=== PATIENT | female | born 1965 | race Caucasian/White ===

== ENCOUNTER 2020-09-16 16:14 | Outpatient (CLI) | payer OTHER | END 2020-09-16 16:24 | disposition home or self-care (01) | LOC: RAD 16:14 | PROVIDERS: ATTEND Physical Medicine & Rehabilitation | DX: M75.31 Calcific tendinitis of right shoulder (principal) ==

== ENCOUNTER 2021-09-15 06:20 | Outpatient (CLI) | payer OTHER | END 2021-09-15 06:21 | disposition home or self-care (01) | LOC: LAB 06:20 | PROVIDERS: ATTEND General Practice | DX: R68.89 Other general symptoms and signs (principal); R30.0 Dysuria; E55.9 Vitamin D deficiency, unspecified; E03.9 Hypothyroidism, unspecified; R10.9 Unspecified abdominal pain ==

== ENCOUNTER 2021-09-15 07:30 | Outpatient (CLI) | payer OTHER | END 2021-09-15 07:41 | disposition home or self-care (01) | LOC: TOM 07:30 | PROVIDERS: ATTEND General Practice | DX: R51.9 Headache, unspecified (principal) ==

== ENCOUNTER 2021-11-07 08:00 | Outpatient (CLI) | payer OTHER | END 2021-11-07 08:30 | disposition home or self-care (01) | LOC: PPH VACUNA 08:00 | PROVIDERS: ATTEND Emergency Medicine Pediatric Emergency Medicine | DX: Z23 Encounter for immunization (principal) ==

== ENCOUNTER 2022-01-19 11:09 | Outpatient (CLI) | payer OTHER | END 2022-01-19 11:32 | disposition home or self-care (01) | LOC: MAMO-SONO 11:09 | PROVIDERS: ATTEND Specialist | DX: Z12.31 Encounter for screening mammogram for malignant neoplasm of breast (principal); N63.0 Unspecified lump in unspecified breast; R10.2 Pelvic and perineal pain ==